=== PATIENT | male | born 1955 | race Caucasian/White ===

== ENCOUNTER → 2017-10-20 | Outpatient (CLI) | payer OTHER ==
--- NOTE | 2017-10-20 12:59 | RADIOLOGY REPORT (SQ) ---
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 TECHNIQUE: Sagittal and Axial imaging includes T1, T1 post gadolinium, T2, STIR and gradient echo se quences. Coronal T2/HASTE imaging. CONTRAST TYPE AND DOSE: 15 mL gadolinium RENAL FUNCTION: GFR > 60. LIMITATIONS: None. FINDINGS: VISUALIZED UPPER ABDOMEN: Limited evaluation. No acute or suspicious findings suggested. SEGMENTATION: No transitional anatomy. The lowest well-developed disc space is labeled L5-S1. ALIGNMENT: Minimal grade 1 listhesis at the lumbosacral junction. VERTEBRAE: Intact. No fractures. BONE MARROW: Normal. No marrow replacement or reactive changes. DISC SIGNAL: Mild diminished disc signal at multiple levels. Detailed below. POSTERIOR ELEMENTS: Lower lumbar facet overgrowth. No pars defect detected. HARDWARE: None in the spine. CORD AND CONUS: Normal in size and signal intensity. Conus at the appropriate level. SOFT TISSUES: No aortic aneurysm seen. No bulky retroperitoneal adenopathy or mass. No paraspinal mas s or fluid. L1-L2: No significant spinal stenosis or exit foraminal stenosis. L2-L3: Mild lateral recess encroachment bilaterally. Patent neural foramina. L3-L4: Broad mild posterior bulge or protrusion. Mild facet overgrowth. Slight central canal narrow ing with up to moderate foraminal encroachment. L4-L5: Disc height loss. Broad mild central protrusion without mass effect on the nerve roots. Post erior element overgrowth with mild central stenosis. Mild -moderate foraminal stenosis bilaterally. L5-S1: Exuberant facet overgrowth with slight transverse dimension central canal narrowing. Mild bro ad posterior disc bulge. Moderate bilateral foraminal narrowing. LOWER THORACIC: T11-12 disc disease. No mass effect on the cord. SACRUM: Visualized upper sacrum intact. ENHANCEMENT: No abnormal enhancement. OTHER: No other significant findings. IMPRESSION: 1. Multilevel spondylosis without evidence of high-grade stenosis. No enhancing lesions . TECHNICAL DOCUMENTATION: JOB ID: [id number] [employer]- All Rights Reserved
== END ==
LOC: RAD 09:48
PROVIDERS: ATTEND Physician Assistant
DX: M51.36 Other intervertebral disc degeneration, lumbar region (principal)
CPT/HCPCS: 82565; 72158; A9577

== ENCOUNTER → 2017-11-02 | Outpatient (CLI) | payer OTHER ==
--- NOTE | 2017-11-02 15:05 | XCELERA REPORT ---
[address] [address] Lower Extremity Arterial Evaluation Name: TANMAY SORIANO V Age: 62 yrs Gender: Male : 1955 Patient Status: Outpatient Patient Location: Study Date: 11/02/2017 08:15 AM Procedure: A color flow and duplex scan of the lower extremity arteries was performed bilaterally with velocity and waveform anaylsis. Ankle brachial indicies performed. Reason For Study: PAIN Ordering Physician: TAHIR BRITO Performed By: Asiya Garcia Measurements and Calculations Right Left TILTING HEAD BAND SAWYER PSV 117.3 69.4 cm/sec Prox PFA PSV -109.2 -70.5 cm/sec Prox SFA PSV -108.2 -103.7 cm/sec Mid SFA PSV -68.1 -120.1 cm/sec Dist SFA PSV -71.2 -103.1 cm/sec Prox Pop A PSV 69.8 55.8 cm/sec Dist ELVIN PSV 82.5 60.1 cm/sec Dist ESTHET[employer]IAN [employer]IST PSV 51.9 54.5 cm/sec Huey Pedis PSV 58.0 42.9 cm/sec Right Side Arterial Evaluation Normal velocity and triphasic waveforms noted from the Common Femoral artery to the infregeniculate vessels. 0 % stenosis . Ankle Brachial index is 1.1. Left Side Arterial Evaluation Normal velocity and triphasic waveforms noted from the Common Femoral artery to the infregeniculate vessels. 0 % stenosis . Ankle Brachial index is 1.1. Interpretation Summary No hemodynamically significant lesions in the bilateral lower extremities, on duplex imaging, at rest. : TAHIR BRITO > Duncan Lay
== END ==
LOC: SP 07:46
PROVIDERS: ATTEND Physician Assistant
DX: M79.661 Pain in right lower leg (principal); M79.662 Pain in left lower leg
CPT/HCPCS: 93925